=== PATIENT | female | born 1935 | race Caucasian/White ===

== ENCOUNTER 2017-06-29 06:49 | Day surgery (SDC) | payer MEDICARE, OTHER ==
[~2017-06-29] VITALS: Ht 162.6 cm; Wt 72.3 kg
[2017-06-29] VITALS (10 sets, daily range): BP systolic 104–125; BP diastolic 48–66; PULSE 48–78; RESP 16–18; TEMP 97–98.8; O2SAT 93–96
[~2017-06-29 06:49] MED LIST: ACTO35TA PO; BRIM.2%O OU; CARV3.125 PO; ENAL5TAB98 PO; LEXA20TA PO; RAMI5CAP7 PO; ROSU40 PO; WARF6 PO; lumigan OU
[2017-06-29] MEDS ORDERED: IOHEXOL 350 MG/ML 50 ML BTL (for Cath Lab) OTHER ONE (06:50)
[2017-06-29] MEDS ORDERED: ASPIRIN 81 MG CHEW TAB PO SCH (07:30)
[2017-06-29] MEDS ORDERED: FURO20TA PO (07:32)
[2017-06-29] MEDS ORDERED: GABA300C5 PO (07:32)
[2017-06-29] MEDS ORDERED: WARF4TAB51 PO (07:32)
[2017-06-29] MEDS ORDERED: ROSU20 PO (07:32)
[2017-06-29 07:33] LABS: AUTOMATED NEUTROPHIL # 3.4 TH/MM3 (1.8-7.7); BASOPHIL % 0.4 % (0.0-2.0); EOSINOPHIL # 0.2 TH/MM3 (0-0.4); EOSINOPHIL % 3.6 % (0.0-4.0); HEMATOCRIT 37.1 % (35.0-46.0); HEMOGLOBIN 12.8 GM/DL (11.6-15.3); LYMPH % 21.6 % (9.0-44.0); LYMPHOCYTE # 1.2 TH/MM3 (1.0-4.8); MEAN CELL VOLUME 84.9 FL (80.0-100.0); MEAN CORPUSCULAR HEMOGLOBIN 29.2 PG (27.0-34.0); MEAN CORPUSCULAR HGB CONC 34.4 % (32.0-36.0); MEAN PLATELET VOLUME 8.6 FL (7.0-11.0); MONO % 11.8 % (0.0-8.0); MONOCYTE # 0.7 TH/MM3 (0-0.9); NEUT % 62.6 % (16.0-70.0); PLATELET COUNT 240 TH/MM3 (150-450); RED BLOOD COUNT 4.38 MIL/MM3 (4.00-5.30); RED CELL DISTRIBUTION WIDTH 14.9 % (11.6-17.2); WHITE BLOOD COUNT 5.5 TH/MM3 (4.0-11.0)
[2017-06-29 07:46] LABS: INTERNATIONAL NORMALIZED RATIO 1.6 RATIO
[2017-06-29 07:54] LABS: BICARBONATE 30.2 MEQ/L (21.0-32.0); CALCIUM 8.4 MG/DL (8.5-10.1); CREATININE 0.84 MG/DL (0.50-1.00)
[2017-06-29] MEDS ORDERED: HEPARIN-NS/PF INJ 1,000 ML ONE (08:31)
[2017-06-29] MEDS ORDERED: MIDAZOLAM HCL 2 MG/2 ML VIAL ONE (08:31)
[2017-06-29] MEDS ORDERED: ADENOSINE STRESS TEST INJ 90 MG/30 ML VIAL ONE (09:14)
[2017-06-29] MEDS ORDERED: HEPARIN SODIUM - IV 10,000 UNITS/10 ML VIAL ONE ×2 (09:18→09:51)
--- NOTE | 2017-06-29 09:57 | CATHPROC ---
[place] HIS Report Study Information Study Number Admission Scheduled Start Study Start [id number] Jun 29 2017 6:49AM 06/29/2017 Jun 29 2017 8:27AM [facility] Cardiac Catheterization Admit Source Facility Department Other [facility] - Care Aid Physician and Clinical Staff Initial MD Weiss, Lucas X Ray Equipment Mechanic Steve Pelaez,ALAN Other cathlab, cathlab Recorder Patrizia Rehman,LEAD SHIPPER TECH2 Scrub Tim Brown RCIS(BS) Procedures Performed Procedure Location (Site) Vessel Name Coronary Angiograms LCA Left Coronary Coronary Angiograms RCA Right Coronary L Heart Cath LV Gram-hand inj. LV LV Ventricle Equipment Time Silver Recovery Operator Description Size Mfg Part Number Used/Scraped CATHETER, FR5 SWAN SYLVESTER 08:30 DIAZ CORRALES FR 5 [id number] *[id number] Used MONITOR TRANSDUCER, TRUWAVE [id number] 08:30 DIAZ CORRALES * Used W/STOCKCOCK *[id number] 09:30 Magix WIRE, COMET PRESSURE [id number] Used [id number] *[id number] *[id number] *[id number] 08:30 MEDLINE INDUSTRIES PACK, CCL CUSTOM * Used *[id number] 08:30 MEDLINE PACER PEN, SKIN DUAL W/ RULER * Used *[id number] 08:30 Bomgar MEDICAL SHEATH, FR5.5 PRELUDE 11CM FR 5.5 Used 038ACT# [id number] 09:18 MERIT MEDICAL SHEATH, FR6.5 PRELUDE 11CM FR 6.5 038ACT Used *[id number] 08:30 [employer]gar MEDICAL WIRE, 3MMJ .035 180CM 180CM Used *[id number] 08:30 NAMIC MANIFOLD, 4 PORT * Used *[id number] 08:30 NYCOMED OMNIPAQUE, 350 MG, 150ML 150ML [id number] Used [id number] 08:30 KHAN MEDICAL BLANKET,WARM AIR CCL * Used *[id number] 08:30 TERUMO MEDICAL SHEATH, FR4 TERUMO (10CM) FR 4 Used *[id number] History: Current Medications Medication Dosage/Unit Route Frequency Last Date/Time Taken CRESTOR Neurontin LASIX Coumadin History: Allergies Allergy Reaction morphine ITCHING /NAUSEA/VOMITING codeine History: Risk Factors Family History of Hypertension Dyslipidemia Previous IN Previous Heart Failure Premature CAD Yes Yes No Yes Yes Prior Valve Prior PCI Prior CABG Surgery No No No Cerebrovascular Peripheral Artery Chronic Lung On Dialysis Diabetes Disease Disease Disease No No No No No History: Stress Tests Stress or Imaging Studies Performed Yes Standard Exercise Stress Test No Stress Echo No Stress Test SPECT No Stress Test CMR Stress Test CMR Result Stress Test CMR Ischemia Risk/Extent Yes Positive Intermediate Cardiac CTA Coronary Calcium Score No No Labs Hgb (g/dl) Hct (%) WBC (l/cumm) Platelets (thousands) 11.60-17.00 35.00-51.00 4.00-11.00 150.00-450.00 12.8 37.1 5.5 240 Glucose (mg/dl) BUN (mg/dl) Creatinine (mg/dl) BUN:Creatinine (1:x) 74.00-106.00 7.00-18.00 0.50-1.30 10.00-20.00 91 15 0.8 18.8 Na (meq/l) K (meq/l) 136.00-145.00 3.50-5.10 140 3.7 INR (PTT:PT) 0.90-1.10 1.6 Medication Medication Total Dose (Bolus/Oral) Medication Total Dosage/Unit 1% XYLOCAINE 20 mL HEPARIN 5800 units VERSED 1 mg Medications (Bolus/Oral) Medication Time Given Dosage/Unit Administered By Reason VERSED 06/29/2017 8:58:39 AM 1 mg Steve Pelaez 1 mg VERSED given in lab by Steve Pelaez RN in Left Antecubital via Peripheral IV. Ordered by Lucas Suero. 1% XYLOCAINE 06/29/2017 9:02:53 AM 20 mL Lucas Weiss 20 mL 1% XYLOCAINE given in lab by Lucas Weiss in Right Groin via Subcutaneous. Ordered by Lucas Suero. HEPARIN 06/29/2017 9:20:27 AM 4300 units Steve Pelaez 4300 units HEPARIN given in lab by Steve Pelaez RN in Left Antecubital via Peripheral IV. Ordered Lucas Monteiro. HEPARIN 06/29/2017 9:30:12 AM 1500 units Steve Pelaez 1500 units HEPARIN given in lab by Steve Pelaez RN in Left Antecubital via Peripheral IV. Ordered Lucas Monteiro. Medication (Drip) Medication Time Given Dosage/Unit Concentration/Unit Diluent (ml) Solution ADENOSINE DRIP 06/29/2017 9:36:15 AM 604 mcg/kg/min 90 mg 90 NaCl .9 604 mcg/kg/min ADENOSINE DRIP given in lab by Steve Pelaez, RN in Left Antecubital via Peripheral IV . Pump/Drip Flow = 2620.15 ml/hr using NaCl .9 with a concentration of 90 mg in 90 ml. Ordered by Lucas Weiss. IV Solutions 06/29/2017 8:27:23 AM 0 mL (IV) 500 NaCl .9 Patient arrived on IV Solutions given by Lucas Weiss in Left Antecubital via Peripheral IV. Pump /Drip Flow = 20 ml/hr using NaCl .9. Ordered by Lucas Weiss. Initial Case Assessment Cardiovascular HR NIBP 67 154/81 Edema Present Skin color Skin None Normal Warm Dry Circulatory - Right Pulses Dorsalis Pedis Femoral 3 2 Scale (0,1,2,3,4,d) Circulatory - Left Pulses Dorsalis Pedis Femoral 3 2 Scale (0,1,2,3,4,d) Neurological State Oriented to time-place- Alert Moves all extremities person Respiration - General Respiration Rate SpO2 (%) (B/min) 15 97 Final Case Assessment Cardiovascular HR NIBP 49 124/63 Edema Present Skin color Skin None Normal Warm Dry Circulatory - Right Pulses Dorsalis Pedis Femoral 3 2 Scale (0,1,2,3,4,d) Circulatory - Left Pulses Dorsalis Pedis Femoral 3 2 Scale (0,1,2,3,4,d) Neurological State Oriented to time-place- Alert Moves all extremities person Respiration - General Respiration Rate SpO2 (%) (B/min) 21 91 Chronological Log Time Study Chronological Log 8:27:05 Patient arrived via Bed. 8:27:10 Patient Name, D.O.B, / Armband Verified By R.N. 8:27:11 Consent signed by the physician and the patient and verified by the Care Aid staff. 8:27:11 Pre-op and post- op instructions given; patient acknowledges understanding of instructions. 8:27:14 Patient has been NPO for More than 6Hrs. 8:27:15 Skin Breakdown- 8:27:16 Patient Warmer Placed on the Table. 8:27:19 Diane Prominences Protected 8:27:22 A # 20 IV was noted in the Antecubital (left). Grade = 0 Patient arrived on IV Solutions given by Lucas Weiss in Left Antecubital via Peripheral IV . Pump/Drip Flow = 20 8:27:23 ml/hr using NaCl .9. Ordered by Lucas Weiss. 8:27:25 History and physical on the chart or being dictated. Vitals capture started with the following parameters, Patient=Adult, Interval=5 min, Initial Pr peyxrk=894 mmHg, 8:29:18 Deflation Rate=5 mmHg, Cuff placed on Left Arm 8:29:57 HR=67 bpm, CWJQ=561/81 mmhg, SpO2=97.0 %, Resp=12 B/min, Pain=0, Ana=10, Bruner=2 Assessment: Initial Case, HR=67 BPM, NWHA=943/81 mmhg, Edema=None, Color=Normal, Skin = Warm, D ry Right Pulses: Jayesh Ped=3, Femoral=2 8:30:31 Left Pulses: Jayesh Ped=3, Femoral=2 Neurological: State=Alert, Ox3, NIETO Respiration: Resp=15 B/min, SpO2=97 % 8:35:00 HR=56 bpm, KBBE=604/70 mmhg, SpO2=96.0 %, Resp=17 B/min, Pain=0, Ana=10, Bruner=2 8:39:21 Bilateral groins prepped with 2% chlorhexidine, and draped after a 3 minute waiting time. 8:39:55 HR=52 bpm, VLHF=174/69 mmhg, SpO2=94.0 %, Resp=19 B/min, Pain=0, Ana=10, Bruner=2 8:41:49 Reference ECG taken 8:44:56 HR=58 bpm, ZPNW=826/73 mmhg, SpO2=95.0 %, Resp=14 B/min, Pain=0, Ana=10, Bruner=2 8:45:10 Pressure channel 1 zeroed. 8:49:57 HR=55 bpm, BNEZ=518/68 mmhg, SpO2=93.0 %, Resp=16 B/min, Pain=0, Ana=10, Bruner=2 8:54:56 HR=52 bpm, CDZT=606/67 mmhg, SpO2=92.0 %, Resp=15 B/min, Pain=0, Ana=10, Bruner=2 8:58:39 1 mg VERSED given in lab by Steve Pelaez RN in Left Antecubital via Peripheral IV. Ordered by Lucas Weiss. 8:59:55 HR=56 bpm, KKWG=946/69 mmhg, SpO2=95.0 %, Resp=17 B/min, Pain=0, Ana=10, Bruner=2 Time Out. Correct patient, correct procedure, correct physician, power injector not loaded with contrast with surgical 9:02:24 team present. Time Out Concurred by MD and individual staff in procedure. 9:02:40 Case Start 20 mL 1% XYLOCAINE given in lab by Lucas Weiss in Right Groin via Subcutaneous. Ordered by Isela, 9:02:53 Lucas. 9:04:42 Access site was Right Femoral Vein. A SHEATH, FR5.5 PRELUDE 11CM FR 5.5 was advanced into the Fem Vein (right) using the Modified Se jim 9:04:56 technique. 9:05:30 Access site was Right Femoral Artery. 9:05:35 HR=54 bpm, ZKQB=739/63 mmhg, SpO2=93.0 %, Resp=25 B/min 9:05:40 A SHEATH, FR4 TERUMO (10CM) FR 4 was advanced into the Fem Art (right) using the Modified Se gregoryinger technique. 9:06:09 A CATHETER, FR5 SWAN SYLVESTER MONITOR FR 5 was inserted via Fem Vein (right) 9:10:26 HR=53 bpm, MQHL=285/63 mmhg, SpO2=91.0 %, Resp=15 B/min, Pain=0, Ana=10, Bruner=2 9:11:38 [place] Sylvester Catheter Removed A JR 4.0 INFINITI CATHETER FR 4 was advanced over a wire. OMNIPAQUE, 350 MG, 150ML 150ML was use d for 9:12:00 injections. Recorded Pressure: LV, HR=54, Condition=Condition 1 9:12:34 (Left Ventricle) LV 121/6/9 9:12:44 The LV was manually injected with 10 cc's and visualized. OMNIPAQUE, 350 MG, 150ML 150ML use d. Recorded Pressure: LV, Ao, HR=52, Condition=Condition 1 9:12:53 (Left Ventricle) LV 122/4/8, (Aorta) Ao 122/52/78 9:13:11 The RCA was injected and visualized at various angles. OMNIPAQUE, 350 MG, 150ML 150ML used. Recorded Pressure: Ao, HR=64, Condition=Condition 1 9:13:20 (Aorta) Ao 118/61/85 9:14:04 Catheter was removed A JL 4.0 INFINITI CATHETER FR 4 was advanced over a wire. OMNIPAQUE, 350 MG, 150ML 150ML was use d for 9:14:10 injections. 9:14:59 HR=60 bpm, PNYD=528/62 mmhg, SpO2=90 %, Resp=20 B/min, Pain=0, Ana=10, Bruner=2 9:15:11 The LCA was injected and visualized at various angles. OMNIPAQUE, 350 MG, 150ML 150ML used. 9:16:16 Catheter was removed 9:16:21 A CATHETER, FR5 SWAN SYLVESTER MONITOR FR 5 was inserted via Fem Vein (right) A SHEATH, FR6.5 PRELUDE 11CM FR 6.5 was exchanged in the Fem Art (right). This was necessary in order for 9:17:17 catheter support. 9:20:00 HR=53 bpm, JQUH=235/62 mmhg, SpO2=90.0 %, Resp=18 B/min, Pain=0, Ana=10, Bruner=2 4300 units HEPARIN given in lab by Steve Pelaez RN in Left Antecubital via Peripheral IV. Orde red by Isela, 9:20:27 Lucas. 9:20:57 [place] Sylvester Catheter Removed 9:25:03 HR=53 bpm, YKGW=873/56 mmhg, SpO2=89.0 %, Resp=20 B/min, Pain=0, Ana=10, Bruner=2 9:25:46 Pressure channel 1 zeroed. A JR 4.0 GUIDE CATHETER FR 6 was advanced over a wire. OMNIPAQUE, 350 MG, 150ML 150ML was used for 9:28:05 injections. 9:28:20 Activated Clotting Time Drawn 9:29:13 Flow Wire was was placed in the RCA. The FFR measures ~FFR~ percent. The IFR measures 0.9 8 Percent. 9:29:58 ACT (Normal Range 90-180) = 218 9:30:00 HR=53 bpm, CDMW=781/61 mmhg, SpO2=91.0 %, Resp=21 B/min, Pain=0, Ana=10, Bruner=2 1500 units HEPARIN given in lab by Steve Pelaez RN in Left Antecubital via Peripheral IV. Ord ered by Isela, 9:30:12 Lucas. 9:35:36 HR=59 bpm, OPXG=641/64 mmhg, SpO2=92.0 %, Resp=16 B/min, Pain=0, Ana=10, Bruner=2 604 mcg/kg/min ADENOSINE DRIP given in lab by Steve Pelaez RN in Left Antecubital via Periphe ral IV. Pump/Drip 9:36:15 Flow = 2620.15 ml/hr using NaCl .9 with a concentration of 90 mg in 90 ml. Ordered by Lucas Weiss. Flow Wire was was placed in the RCA. The FFR measures ~FFR~ percent. The IFR measures 0.94 Pe rcent. ON 9:36:51 ADENOSINE DRIP 9:39:42 The WIRE, COMET PRESSURE was removed. 9:39:50 Catheter was removed 9:39:55 Case End 9:40:02 HR=64 bpm, SKGT=139/59 mmhg, SpO2=94.0 %, Resp=17 B/min, Pain=0, Ana=10, Bruner=2 9:41:18 Activated Clotting Time Drawn 9:45:01 HR=49 bpm, XTDK=541/63 mmhg, SpO2=91.0 %, Resp=21 B/min, Pain=0, Ana=10, Bruner=2 9:48:02 Vitals capture stopped. 9:50:28 ACT (Normal Range 90-180) = 226 9:50:43 Catheter(s) removed without difficulty 9:50:45 Sterile dressing applied to site 9:50:46 No case complications noted. 9:50:47 Cine recording checked. Assessment: Final Case, HR=49 BPM, LZVJ=138/63 mmhg, Edema=None, Color=Normal, Skin = Warm, Dry Right Pulses: Jayesh Ped=3, Femoral=2 9:50:53 Left Pulses: Jayesh Ped=3, Femoral=2 Neurological: State=Alert, Ox3, NIETO Respiration: Resp=21 B/min, SpO2=91 % 9:50:55 Bedside Report will be given. 9:50:59 Patient moved to stretcher 9:51:01 A Left Heart Cath was performed. End Study - Contrast Media Used In Study Contrast Total Opened (mL) Total Used (mL) Total Wasted (mL) Omnipaque 50 50 0 End Study - Maximum Contrast Load Max Contrast Load (mL) 452.0 End Study - Radiation Exposure Fluoro Time (minutes) 10.6 End Study - Patient Disposition Complications Transferred To No Telemetry Bed
[2017-06-29] MEDS ORDERED: BACITRACIN OINT 0.9 GM PKT TOP ONE (10:15)
[2017-06-29] MEDS ORDERED: MISC INFORMATION XX ONE (10:15)
[2017-06-29] MEDS ORDERED: SODIUM CHLORIDE 0.9% FLUSH 10 ML FLUSH IV FLUSH PRN (10:15)
--- NOTE | 2017-06-29 10:31 | MA ---
cc: KELLEY SMITH M.D.,EMILY SHIELDS M.D., M.D. DATE 06/29/2017 PROCEDURE Left heart catheterization, left ventriculography, coronary angiography, FFR of the proximal to mid-right coronary artery. INDICATIONS 1. Coronary artery disease. 2. [place] Heart Association Class III-IV congestive heart failure. 3. Cardiomyopathy. 4. Anginal equivalent, unstable angina. [place] Cardiovascular Society Class III-IV angina. 5. Status post mitral valve repair. The patient was brought to the cardiac catheterization laboratory, prepped in the usual sterile fashion. 10 cc of 1% lidocaine was used to locally anesthetize the right common femoral artery. A 4-[place] sheath was placed in the right common femoral artery, a 5-[place] sheath placed in the right common femoral vein, later exchanged for a 6-[place] sheath in the right common femoral vein. I attempted to do right heart catheterization first. I was not able to maneuver the balloon-tipped Central-Lurdes catheter into the right atrium; it appeared to be going into the hepatic vein or not being able to cross a valve. I did multiple attempts and changed the 5-[place] sheath to the 6-[place] sheath. It was difficult to torque the Central-Lurdes catheter. The femoral artery sat was 93.4% on room air. Left heart catheterization was then performed with a 4-[place] JR-4, JL-4 catheter with the following findings: LV pressure 140/8-10. Ejection fraction 45%. Mitral valve ring was seen in place fluoroscopically. The right coronary artery is dominant. There is a long complex 50-60% stenosis in the proximal to mid-segment with mild fibrocalcification seen in the mid-segment. Otherwise there is mild disease in the proximal segment, up to 10% angiographically. The distal reference vessel diameter is probably 5 mm in diameter. The right MADDIE and PDA have no significant obstructive disease. The left main coronary artery is fibrocalcific fluoroscopically. It has an ostial proximal 10-20% stenosis. The LAD is transapical, has a proximal 20-30% stenosis. First and second diagonal arteries small vessels. No significant disease angiographically. The left circumflex vessel has no significant disease angiographically. The first obtuse marginal vessel is a small to medium-sized vessel that is probably a 2.25 mm reference vessel with an ostial proximal 20% stenosis. There is a distal posterolateral artery which is a medium-sized vessel, 2.25 mm in diameter, tortuous, no significant disease angiographically. There is a small distal posterolateral artery which is a 1 mm reference vessel diameter with no significant obstruction. The 6-[place] sheath was exchanged for a 4-[place] sheath. 70 units/kg heparin was given, ACT was 207. An additional 1500 units of heparin was given, final ACT 226. A 6-[place] JL4 guide was placed in the right coronary artery. A 0.014 [place] pressure wire was placed into the proximal right coronary artery, introducer was moved. The guide catheter than thoroughly flushed with 20 cc of normal saline. Pressure wave forms were normalized. The pressure wire was then advanced to the distal right coronary artery. The IFR was 0.99. The patient was infused with 140 mcg per kilogram per minute of adenosine for 3 minutes. FFR was 0.94. PCI was deferred. CONCLUSION 1. Mild to moderate three-vessel coronary disease in a right-dominant system as detailed above. 2. 60% proximal mid-right coronary artery with an IFR of 0.99, FFR of 0.94, PCI deferred. 3. Mild LV systolic dysfunction, EF is 45%. 4. LV pressure is 140/8-10 consistent with normal LVEDP to slightly low LVEDP. 5. Unsuccessful right heart catheterization. NOTE Her [facility] was 1800 which is within normal range suggesting a possible noncardiac cause of her severe shortness of breath with minimal activities of daily living which is worsening. Without the right heart catheterization I cannot completely rule out mitral valve stenosis, therefore I have recommended to the patient that we do a BRE which I will set up next week to further image her mitral valve. I have also instructed the patient to resume her Coumadin tonight and follow up within the office next Monday or MondayJuly 03 or July 04. Otherwise, we will continue Coumadin, Crestor 20 mg daily, Gabapentin, Lasix 20 mg daily. MD MARVIN Brunson/KHANH /9:44 AM /9:56 AM
[2017-06-29] MEDS ORDERED: MAGNESIUM SULFATE 1 GM PREMIX 100 ML IV SCH (11:00)
[2017-06-29] MEDS ORDERED: SODIUM CHLORIDE 0.9% FLUSH 10 ML FLUSH IV FLUSH SCH (21:00)
--- NOTE | 2017-06-29 23:23 | EKG ---
Date Performed: 06/29/2017 Time Performed: 07:31:22 PTAGE: 81 years EKG: Atrial fibrillation with slow ventricular response. Left bundle branch block Abnormal ECG PREVIOUS TRACING : 06/17/2008 12.04 Compared to prior tracing, now in Afib DOCTOR: Brian Gomez Interpretating Date/Time 06/29/2017 23:22:17
[2017-06-30] VITALS (16 sets, daily range): BP systolic 104–119; BP diastolic 54–66; PULSE 48–60; RESP 16–18; TEMP 97.1–98.3; O2SAT 93–95
[2017-06-30 07:00] LABS: AUTOMATED NEUTROPHIL # 3.6 TH/MM3 (1.8-7.7); BASOPHIL % 0.3 % (0.0-2.0); EOSINOPHIL # 0.2 TH/MM3 (0-0.4); EOSINOPHIL % 3.3 % (0.0-4.0); HEMATOCRIT 36.2 % (35.0-46.0); HEMOGLOBIN 12.1 GM/DL (11.6-15.3); LYMPH % 25.1 % (9.0-44.0); LYMPHOCYTE # 1.5 TH/MM3 (1.0-4.8); MEAN CELL VOLUME 85.3 FL (80.0-100.0); MEAN CORPUSCULAR HEMOGLOBIN 28.5 PG (27.0-34.0); MEAN CORPUSCULAR HGB CONC 33.4 % (32.0-36.0); MEAN PLATELET VOLUME 9.5 FL (7.0-11.0); MONO % 10.7 % (0.0-8.0); MONOCYTE # 0.6 TH/MM3 (0-0.9); NEUT % 60.6 % (16.0-70.0); PLATELET COUNT 207 TH/MM3 (150-450); RED BLOOD COUNT 4.24 MIL/MM3 (4.00-5.30); RED CELL DISTRIBUTION WIDTH 15.1 % (11.6-17.2); WHITE BLOOD COUNT 5.9 TH/MM3 (4.0-11.0)
[2017-06-30 07:26] LABS: BICARBONATE 28.8 MEQ/L (21.0-32.0); CALCIUM 8.5 MG/DL (8.5-10.1); CREATININE 0.75 MG/DL (0.50-1.00)
[2017-06-30 07:30] LABS: CHOLESTEROL/ HDL RATIO 3.8 RATIO; HDL CHOLESTEROL 36.5 MG/DL (40.0-60.0)
--- NOTE | 2017-07-03 15:32 | ECHRPT ---
Indication: CONCLUSIONS 1.) normal lv size, wall thickness, ef=30% 2.) Moderate mr, no evidence of mitral valve stenosis 3.) Small asd, lower atrium with minimal right to left shunt by saline contarst bubble study into ri ght atrium 4.) mild to moderate tr 5.) normal appearing ascending aorta however images suboptimal BP: / HR: Rhythm: Technical Quality: Medications Complications Proc. Components Lucas Weiss MD, FACC, FSCAI (Electronically Signed) Final Date:03 July 2017 15:30
== END 2017-06-30 17:22 | disposition home or self-care (01) ==
LOC: HDOC 06:49 → HDIC 06:49 → HCIS 14:55 → HDOC 06-30 17:22
PROVIDERS: ATTEND Internal Medicine Interventional Cardiology
DX: I25.110 Atherosclerotic heart disease of native coronary artery with unstable angina pectoris (principal); I50.9 Heart failure, unspecified; I42.9 Cardiomyopathy, unspecified; I48.91 Unspecified atrial fibrillation; I27.20 Pulmonary hypertension, unspecified; R06.02 Shortness of breath; R55 Syncope and collapse; I95.9 Hypotension, unspecified; I34.0 Nonrheumatic mitral (valve) insufficiency; I35.1 Nonrheumatic aortic (valve) insufficiency; E78.00 Pure hypercholesterolemia, unspecified; Z79.01 Long term (current) use of anticoagulants
CPT/HCPCS: 80048; 80061; 82550; 85025; 85347; 85610; 85730; 93005; 93460; 93571; 99152; 99153; C1769; C1887; C1893; J0153; J1644; J2250; J3475; Q9967

== ENCOUNTER 2017-07-03 10:40 | Day surgery (SDC) | payer MEDICARE, OTHER ==
[~2017-07-03 10:40] MED LIST changes: -ACTO35TA PO; -BRIM.2%O OU; -CARV3.125 PO; -ENAL5TAB98 PO; +FURO20TA PO; +GABA300C5 PO; -LEXA20TA PO; -RAMI5CAP7 PO; +ROSU20 PO; -ROSU40 PO; +WARF4TAB51 PO; -WARF6 PO; -lumigan OU
[2017-07-03] MEDS ORDERED: POVIDONE IODINE 5% (ANTISEPSIS KIT) 4 APPLICATIONS EACH NARE PRN (12:00)
[2017-07-03] MEDS ORDERED: CHLORHEXIDINE GLUCONATE 2 % 1 PACK (2 CLOTHS) TOPICAL PRN (12:00)
[2017-07-03] MEDS ORDERED: LACTATED RINGER'S 1000 ML IV PRN (12:00)
[2017-07-03] MEDS ORDERED: SODIUM CHLORID 0.9% 500 ML IV PRN (12:00)
[2017-07-03] MEDS ORDERED: METOPROLOL TARTRATE 25 MG TAB PO PRN (12:00)
[2017-07-03] MEDS ORDERED: LIDOCAINE HCL 2% 100 MG/5 ML SYRINGE ONE (12:33)
[2017-07-03] MEDS ORDERED: PROPOFOL 200 MG/20 ML AMP ONE (12:34)
== END 2017-07-03 13:47 | disposition home or self-care (01) ==
LOC: HDOC 10:40 → HDIC 10:40 → HDOC 13:47
PROVIDERS: ATTEND Internal Medicine Interventional Cardiology
DX: I35.1 Nonrheumatic aortic (valve) insufficiency (principal); I34.0 Nonrheumatic mitral (valve) insufficiency; I48.91 Unspecified atrial fibrillation; I25.10 Atherosclerotic heart disease of native coronary artery without angina pectoris; I27.20 Pulmonary hypertension, unspecified; I50.9 Heart failure, unspecified; I42.0 Dilated cardiomyopathy; Z79.01 Long term (current) use of anticoagulants
CPT/HCPCS: 93312; 93320; 93325